=== PATIENT | female | born 1945 ===

== ENCOUNTER → 2020-05-25 | Outpatient (CLI) | payer MEDICARE, OTHER | LOC: LAB SHORT 14:07 → PLD 14:07 | DX: C79.2 Secondary malignant neoplasm of skin (principal) | CPT/HCPCS: 88341; 88342 ==

== ENCOUNTER → 2020-06-25 | Outpatient (CLI) | payer MEDICARE, OTHER | LOC: LAB 07:12 → LAB SHORT 07:12 | DX: C44.509 Unspecified malignant neoplasm of skin of other part of trunk (principal) | CPT/HCPCS: 88360 ==

== ENCOUNTER → 2024-04-19 | Outpatient (CLI) | payer MEDICARE, OTHER | LOC: LAB SHORT 14:12 → PLD 14:12 | DX: D48.5 Neoplasm of uncertain behavior of skin (principal) | CPT/HCPCS: 88305; 88341; 88342; 88360 ==